=== PATIENT | female | born 1995 | race Asian ===

== ENCOUNTER 2017-01-01 12:55 | Emergency (ER) | payer OTHER ==
[~2017-01-01] VITALS: Ht 160 cm; Wt 57.6 kg
[2017-01-01 14:23] LABS: PLATELET COUNT 256 K/uL (152-353)
[2017-01-01 14:30] LABS: SODIUM 134 mmol/L (136-145)
[2017-01-01 16:10] VITALS: BP 110/78; TEMP 98.2
== END 2017-01-01 16:10 | disposition home or self-care (01) ==
LOC: ED 12:55
PROVIDERS: Specialist
DX: Z33.1 Pregnant state, incidental (principal); E86.9 Volume depletion, unspecified
CPT/HCPCS: 36415; 36600; 80048; 81000; 82550; 82553; 82805; 84484; 85027; 85379; 93005; 96361; 96374; 99284; J2405